=== PATIENT | male | born 1940 | race Two or more races ===

== ENCOUNTER 2022-01-29 07:13 | Day surgery (SDC) | payer MEDICARE, BC ==
[~2022-01-29] VITALS: Ht 180.3 cm; Wt 86.2 kg
[~2022-01-29 07:13] MED LIST: AMLO-489 PO; EZET10TA24 PO; FINA5TAB4 PO; TAMS0.4C36 PO
[2022-01-29] MEDS ORDERED: ANGIOMAX 250 MG VIAL IV ONE (09:14)
[2022-01-29] MEDS ORDERED: fentaNYL CITRATE 100 MCG/2 ML VL ONE (09:14)
[2022-01-29] MEDS ORDERED: HEPARIN SODIUM (PORCINE) 5000 UNITS/ML 1ML VIAL ONE (09:14)
[2022-01-29] MEDS ORDERED: VERAPAMIL 2.5MG/ML INJ 2ML VIAL IV ONE (09:14)
[2022-01-29] MEDS ORDERED: MIDAZOLAM HCL 2MG/2ML 2ml VIAL (1mg/ml) ONE (09:15)
[2022-01-29] MEDS ORDERED: LIDOCAINE 2%HCL (LOCAL ANESTH.) INJ 20ML MDV ONE (09:20)
== END 2022-01-29 12:00 | disposition home or self-care (01) ==
LOC: CATH 07:13
PROVIDERS: ATTEND Internal Medicine
DX: R94.39 Abnormal result of other cardiovascular function study (principal); I25.10 Atherosclerotic heart disease of native coronary artery without angina pectoris; I10 Essential (primary) hypertension; Z87.891 Personal history of nicotine dependence; Z20.822 Contact with and (suspected) exposure to COVID-19
CPT/HCPCS: 93458; C1760; C1769; C1887; C1894; J1644; J2250; J3010; U0003; 99152; 99153

== ENCOUNTER 2024-02-12 09:49 | Emergency (ER) | payer MEDICARE, BC ==
[~2024-02-12] VITALS: Ht 180.3 cm; Wt 86.0 kg
[~2024-02-12 09:49] MED LIST changes: -AMLO-489 PO; +AMLO1TAB22 PO; -TAMS0.4C36 PO; +TAMS0.4C39 PO
[2024-02-12] MEDS ORDERED: SODIUM CHLORIDE 0.9% 1,000 ML IV ONE (11:15)
[2024-02-12 11:59] LABS: Basophils # (auto) 0 10 ^3/uL (0-0.2); Basophils % (auto) 0.1 % (0.0-2.0); Eosinophils # (auto) 0 10 ^3/uL (0-0.8); Hematocrit 40.9 % (41.0-53.0); Hemoglobin 14.4 g/dL (13.5-17.5); Lymphocytes # (auto) 0.4 10 ^3/uL (0.4-5.4); Lymphocytes % (auto) 3.1 % (10.0-50.0); Mean Corpuscular Hemoglobin 32.5 pg (28.0-32.0); Mean Corpuscular Hgb Conc. 35.3 g/dL (32.0-36.0); Monocytes # (auto) 1.1 10 ^3/uL (0-1.3); Monocytes % (auto) 8.5 % (0.0-12.0); Neutrophils # (auto) 11.5 10 ^3/uL (1.6-8.6); Neutrophils % (auto) 88.3 % (37.0-80.0); Platelet Count (auto) 185 10^3/uL (140-450); Red Blood Cells 4.44 10^6/uL (4.5-5.90); Red Cell Distribution Width 13.2 % (11.8-14.3)
[2024-02-12 12:19] LABS: Alanine Aminotransferase 18 U/L (7-40); Albumin 4.5 g/dL (3.2-4.8); Alkaline Phosphatase 68 U/L (46-116); Anion Gap 8 (5-15); Aspartate Aminotransferase 18 U/L (13-40); BUN/Creatinine Ratio 12.9 (10.0-20.0); Blood Urea Nitrogen 15 mg/dL (9-23); Calcium 9.9 mg/dL (8.7-10.4); Carbon Dioxide 26 mmol/L (20-31); Chloride 104 mmol/L (98-107); Glucose 145 mg/dL (74-106); Magnesium 2.1 mg/dL (1.6-2.6); Sodium 138 mmol/L (136-145)
[2024-02-12 12:20] LABS: Total Protein 6.9 g/dL (5.7-8.2)
[2024-02-12] MEDS: SODIUM CHLORIDE 0.9% 1,000 ML IV ONE (12:36)
[2024-02-12] MEDS: ONDANSETRON HCL 4 MG/2 ML VIAL IV ONE (12:40)
[2024-02-12] MEDS: cefTRIAXone 1GM/50ML D5W 50 ML IV ONE (12:45)
[2024-02-12] MEDS: KETOROLAC TROMETH 30 MG/ML 1ML VIAL IV ONE (12:45)
[2024-02-12] MEDS: MORPHINE SULFATE 4 MG/ML SYR/VIAL IV ONE (12:47)
[2024-02-12] MEDS: IOHEXOL 300 MG/ML 100ML BOTTLE IJ ONE (12:56)
[2024-02-12 13:03] LABS: Lipase 39 U/L (12-53)
[2024-02-12] MEDS ORDERED: TRAM50TA2 PO ×2 (14:59→15:16)
[2024-02-12] MEDS ORDERED: CEFD300C2 PO (14:59)
[2024-02-12] MEDS ORDERED: DICL50TA2 PO (14:59)
[2024-02-12 16:34] VITALS: BP 123/63; PULSE 68; RESP 16; O2SAT 98
== END 2024-02-12 16:39 | disposition home or self-care (01) ==
LOC: EDBD 09:49 → ER 09:49
DX: N45.3 Epididymo-orchitis (principal); K44.9 Diaphragmatic hernia without obstruction or gangrene; K59.01 Slow transit constipation; N32.3 Diverticulum of bladder; N50.82 Scrotal pain; K46.9 Unspecified abdominal hernia without obstruction or gangrene; I71.9 Aortic aneurysm of unspecified site, without rupture
CPT/HCPCS: 36415; 71046; 74177; 76870; 80053; 83690; 83735; 85025; 96365; 96375; 99285; J0696; J1885; J2270; J2405; J7030; Q9967